=== PATIENT | female | born 1965 | race Caucasian/White ===

== ENCOUNTER 2016-03-22 21:44 | Inpatient (IN) | payer OTHER ==
[2016-03-22 22:27] VITALS: BMI 21.9
--- NOTE | 2016-03-22 22:37 | HP ---
COWS - Scale Resting Pulse: 2= [place] 101-120 Sweatin=Flushed/Facial Moisture Restless Observation: 5= Unable to Sit Still Pupil Size: 1= Pupils >than Normal Bone or Joint Aches: 4=Acute Joint/Muscle Pain Runny Nose/ Eye Tearin= Nasal Congestion GI Upset > 30mins: 2= Nausea/Diarrhea Tremor Observation: 4= Gross Tremor/Twitching Yawning Observation: 0= None Anxiety or Irritability: 4=Extreme Anxiety Goose Flesh Skin: 0=Smooth Skin COWS Score: 25 CIWA Score - CIWA Score Nausea/Vomitin Muscle Tremors: 4-Moderate,w/Arms Extend Anxiety: 4-Mod. Anxious/Guarded Agitation: 4-Moderately Restless Paroxysmal Sweats: 3 Orientation: 1-Uncertain about Date Tacttile Disturbances: 2-Mild Itch/Numbness/Burn Auditory Disturbances: 2-Mild Harshness/Frighten Visual Disturbances: 0-None Headache: 4-Moderately Severe CIWA-Ar Total Score: 26 Admission ROS S - HPI Chief Complaint: WITHDRAWAL SX'S Allergies/Adverse Reactions: Allergies Allergy/AdvReac Type Severity Reaction Status Date / Time No Known Allergies Allergy Verified 03/22/16 22:36 History of Present Illness: 51 Y.O. FEMALE WITH OPIOID/BENZO DEPENDENCE ADMITTED FOR DETOX TXMENT. KNOWN TO [facility]. DENIES ANY SIGNIFICANT CLEAN TIME. LAST DETOX 12/2015 Exam Limitations: No Limitations - Ebola screening Have you traveled outside of the country in the last 21 days: No (N) Have you had contact with anyone from an Ebola affected area: No Have you been sick,other than usual withdrawal symptoms: No Do you have a fever: No - Review of Systems Constitutional: Chills, Loss of Appetite, Malaise, Night Sweats EENT: reports: Nose Congestion Respiratory: reports: No Symptoms reported Cardiac: reports: No Symptoms Reported GI: reports: Nausea, Poor Appetite : reports: No Symptoms Reported Musculoskeletal: reports: Back Pain, Joint Pain, Neck Pain Integumentary: reports: No Symptoms Reported Neuro: reports: No Symptoms reported Endocrine: reports: No Symptoms Reported Hematology: reports: No Symptoms Reported Psychiatric: reports: Anxious, Depressed Other Systems: Reviewed and Negative Patient History - Patient Medical History Hx Anemia: No Hx Asthma: No Hx Chronic Obstructive Pulmonary Disease (COPD): No Hx Cancer: No Hx Cardiac Disorders: Yes (MURMUR) Hx Congestive Heart Failure: No Hx Hypertension: Yes (H/O D/C NORVASC) Hx Hypercholesterolemia: No Hx Pacemaker: No HX Cerebrovascular Accident: No Hx Seizures: No Hx Dementia: No Hx Diabetes: No Hx Gastrointestinal Disorders: No Hx Liver Disease: No Hx Genitourinary Disorders: No Hx Sexually Transmitted Disorders: No Hx Renal Disease (ESRD): No Hx Thyroid Disease: No Hx Human Immunodeficiency Virus (HIV): No Hx Hepatitis C: No Hx Depression: Yes (NO MEDS) Hx Suicide Attempt: No Hx Bipolar Disorder: No Hx Schizophrenia: No Other Medical History: FIBROMYALGIA - Patient Surgical History Past Surgical History: Yes Hx Neurologic Surgery: Yes (SPINAL SX X2 cervical sx) Hx Cataract Extraction: No Hx Cardiac Surgery: No Hx Lung Surgery: No Hx Breast Surgery: No Hx Breast Biopsy: No Hx Abdominal Surgery: No Hx Appendectomy: No Hx Cholecystectomy: No Hx Genitourinary Surgery: No Hx Section: No Hx Orthopedic Surgery: Yes (L wrist sx L rotator cuff sx) Hx Hysterectomy: No Anesthesia Reaction: No - PPD History Previous Implant?: Yes Documented Results: Positive w/o proof Implanted On Prior [facility] Admission?: No Date: 01/08/16 Results: NEGATIVE CXR PPD to be Administered?: No - Reproductive History Last Menstrual Period: 09/19/15 Patient : No - Smoking Cessation Smoking history: Current every day smoker Have you smoked in the past 12 months: Yes Aproximately how many cigarettes per day: 20 Cigars Per Day: 0 Hx Chewing Tobacco Use: No Initiated information on smoking cessation: Yes 'Breaking Loose' booklet given: 03/22/16 - Substance & Tx. History Hx Alcohol Use: Yes Hx Substance Use: Yes Substance Use Type: Alcohol, Prescribed (PERCOCET/XANAX), Tranquilizers Hx Substance Use Treatment: Yes ([facility]) - Substances Abused PERCOCETS Route: Oral Frequency: Daily Amount used: 7-10/325MG Age of first use: 50 Date of Last Use: 03/21/16 XANAX Route: Oral Frequency: Daily Amount used: 2MG Age of first use: 41 Date of Last Use: 03/22/16 Family Disease History - Family Disease History Family Disease History: Heart Disease: Father ( heart attack), CA: Mother (breast ) Admission Physical Exam [facility] - Vital Signs Vital Signs: Vital Signs - 24 hr 03/22/16 22:23 Temperature 98.6 F Pulse Rate 105 H Respiratory 20 Rate Blood Pressure 160/109 - Physical General Appearance: Yes: Appropriately Dressed, Mild Distress, Tremorous, Sweating, Anxious HEENTM: Yes: EOMI, Hearing grossly Normal, Normocephalic, Normal Voice, TREVON, Pharynx Normal Respiratory: Yes: Chest Non-Tender, Lungs Clear, Normal Breath Sounds, No Respiratory Distress, No Accessory Muscle Use Neck: Yes: No masses,lesions,Nodules, Supple, Trachea in good position Breast: Yes: Breast Exam Deferred Cardiology: Yes: Regular Rhythm, S1, S2, Tachycardia Abdominal: Yes: Normal Bowel Sounds, Non Tender, Flat, Soft Genitourinary: Yes: Within Normal Limits Back: Yes: Normal Inspection Musculoskeletal: Yes: full range of Motion, Gait Steady Extremities: Yes: Normal Capillary Refill, Normal Range of Motion, Non-Tender, Tremors Neurological: Yes: ice guard tester II-XII NML intact, Fully Oriented, Alert, Motor Strength 5/5 Integumentary: Yes: Normal Color, Dry, Warm Lymphatic: Yes: Within Normal Limits - Diagnostic (1) Opioid dependence with withdrawal Current Visit: No Status: Acute (2) Nicotine dependence Current Visit: No Status: Chronic Qualifiers: Nicotine product type: cigarettes Substance use status: uncomplicated Qualified Code(s): F17.210 - Nicotine dependence, cigarettes, uncomplicated (3) Sedative, hypnotic or anxiolytic dependence with withdrawal, uncomplicated Current Visit: Yes Status: Acute (4) Fibromyalgia Current Visit: Yes Status: Acute (5) History of positive PPD Current Visit: Yes Status: Acute Cleared for Admission [facility] - Detox or Rehab [facility] Level of Care: Medically Managed Detox Regimen/Protocol: Methadone/Valium [facility] Breath Alcohol Content Breath Alcohol Content: 0.015 Urine Pregancy Test - Result Urine Test Results: Negative- NO Line Present Urine Drug Screen - Results Drug Screen Negative: No Urine Drug Screen Results: BZO-Benzodiazepines, OXY-Oxycodone
[2016-03-22] MEDS ORDERED: MAGNESIUM CITRATE 300 ML BOTTLE PO PRN (22:59)
[2016-03-22] MEDS ORDERED: MAG HYDROX/AL HYDROX/SIMETH 30 ML UNIT-DOSE CUP PO PRN (22:59)
[2016-03-22] MEDS ORDERED: diphenhydrAMINE HCL 50 MG CAPSULE PO PRN (22:59)
[2016-03-22] MEDS ORDERED: guaiFENesin/D-METHORPHAN HB 10 ML UNIT-DOSE CUPS PO PRN (22:59)
[2016-03-22] MEDS ORDERED: P-EPHED 60MG/TRIPROLIDI 2.5MG TABLET PO PRN (22:59)
[2016-03-22] MEDS ORDERED: METHADONE HCL 10 MG TABLET (FOR DETOX USE ONLY) PO ONE ×2 (22:59→23:00)
[2016-03-22] MEDS ORDERED: diazePAM 5 MG TABLET PO ONE (22:59)
[2016-03-22] MEDS ORDERED: IBUPROFEN 400 MG TABLET (FP) PO PRN (22:59)
[2016-03-22] MEDS ORDERED: NICOTINE POLACRILEX 2 MG GUM BUC PRN (22:59)
[2016-03-22] MEDS ORDERED: MAGNESIUM HYDROX 2400MG/30ML ORAL SUSPENSION 30 ML CUP PO PRN (22:59)
[2016-03-22] MEDS ORDERED: MENTHOL/PHENOL 1 EACH UD MM PRN (22:59)
[2016-03-22] MEDS ORDERED: LOPERAMIDE HCL 2 MG CAPSULE PO PRN (22:59)
[2016-03-22] MEDS: diazePAM 5 MG TABLET PO SCH (23:42)
[2016-03-23] MEDS: ACETAMINOPHEN 325 MG TABLET (FP) PO PRN (00:38)
[2016-03-23 01:14] LABS: URINE APPEARANCE CLEAR; URINE BILIRUBIN NEGATIVE (NEGATIVE); URINE COLOR STRAW; URINE GLUCOSE (UA) NEGATIVE (NEGATIVE); URINE KETONE NEGATIVE (NEGATIVE); URINE LEUK ESTERASE NEGATIVE (NEGATIVE); URINE NITRITE NEGATIVE (NEGATIVE); URINE PROTEIN NEGATIVE (NEGATIVE); URINE UROBILINOGEN NEGATIVE E.U./dl (0.2-1.0)
[2016-03-23 01:22] LABS: URINE BLOOD 1+ (NEGATIVE)
[2016-03-23 01:25] LABS: URINE BACTERIA MODERATE /hpf (NONE SEEN); URINE HYALINE CAST 2 /lpf; URINE MUCUS RARE; URINE RBC <1 /hpf (0-3); URINE WBC 3 /hpf (3-5)
[2016-03-23] MEDS: hydrOXYzine PAMOATE 50 MG CAPSULE (FP) PO PRN (02:02)
[2016-03-23] MEDS: diazePAM 5 MG TABLET PO SCH ×3 (06:05→22:40)
--- NOTE | 2016-03-23 09:29 | EKG ---
Test Reason : Blood Pressure : / mmHG Vent. Rate : 088 BPM Atrial Rate : 088 BPM P-R Int : 156 ms QRS Dur : 070 ms QT Int : 376 ms P-R-T Axes : 076 067 036 degrees QTc Int : 454 ms NORMAL SINUS RHYTHM POSSIBLE LEFT ATRIAL ENLARGEMENT NO PREVIOUS ECGS AVAILABLE Confirmed by JAC CERRATO MD ([id number]) on 03/23/2016 9:29:18 AM Referred By: Confirmed By:JAC CERRATO MD
--- NOTE | 2016-03-23 09:46 | PN ---
[facility] CIWA - CIWA Score Nausea/Vomitin Muscle Tremors: 4-Moderate,w/Arms Extend Anxiety: 4-Mod. Anxious/Guarded Agitation: 4-Moderately Restless Paroxysmal Sweats: 3 Orientation: 0-Oriented Tacttile Disturbances: 1-Very Mild Itch/Numbness Auditory Disturbances: 0-None Visual Disturbances: 0-None Headache: 4-Moderately Severe CIWA-Ar Total Score: 23 [facility] COWS - Scale Resting Pulse: 1= [place] 81-100 Sweatin= Chills/Flushing Restless Observation: 1= Difficult to Sit Still Pupil Size: 1= Pupils >than Normal Bone or Joint Aches: 2= Severe Diffuse Aches Runny Nose/ Eye Tearin= Runny Nose/Eyes GI Upset > 30mins: 2= Nausea/Diarrhea Tremor Observation of Outstretched Hands: 2= Slight Tremor Visible Yawning Observation: 2= >3x During Session Anxiety or Irritability: 2=Irritable/Anxious Goose Flesh Skin: 3=Piloerection COWS Score: 19 S Progress Note (SOAP) Subjective: nausea, sweats, interrupted sleep, anxiety, tremors, body aches Objective: 03/23/16 09:44 Vital Signs - 24 hr 03/22/16 03/22/16 03/23/16 22:23 23:58 06:00 Temperature 98.6 F 97.0 F L 97.5 F L Pulse Rate 105 H 91 H 65 Respiratory 20 20 16 Rate Blood Pressure 160/109 156/103 130/75 Laboratory Tests 03/23/16 00:45 Urine Color Straw Urine Appearance Clear Urine pH 7.0 D Ur Specific [place] 1.004 Urine Protein Negative Urine Glucose (UA) Negative Urine Ketones Negative Urine Blood 1+ H Urine Nitrite Negative Urine Bilirubin Negative Urine Urobilinogen Negative Ur Leukocyte Esterase Negative Urine RBC <1 Urine WBC 3 Ur Epithelial Cells Few Urine Bacteria Moderate Hyaline Casts 2 Urine Mucus Rare labs still pending Assessment: 03/23/16 09:45 withdrawal sx Plan: cont detox, repeat urinalysis, urine c and s
[2016-03-23] MEDS ORDERED: METHADONE HCL 10 MG TABLET (FOR DETOX USE ONLY) PO SCH (10:00)
[2016-03-23 10:33] LABS: MCH 30.8 pg (25.7-33.7); MCHC 33.7 g/dl (32.0-36.0); MEAN CELL VOLUME 91.5 fl (80-96); MEAN PLT VOLUME 8.8 fl (7.5-11.1); PLATELET COUNT 290 K/MM3 (134-434); WHITE BLOOD COUNT 9.6 K/mm3 (4.0-10.0)
[2016-03-23] MEDS: cloNIDine HCL 0.1 MG TABLET PO SCH ×2 (10:39→22:41)
[2016-03-23] MEDS: NICOTINE 21 MG/24 HOURS TOPICAL PATCH TD SCH (10:40)
[2016-03-23] MEDS: PRENATAL VITAMINS W/ FOLIC ACID TABLET (FP) PO SCH (10:40)
[2016-03-23] MEDS: NAPROXEN 500 MG TABLET (FP) PO SCH ×2 (10:40→22:41)
[2016-03-23] MEDS: diazePAM 5 MG TABLET PO PRN ×2 (10:41→18:04)
[2016-03-23 12:01] LABS: BILIRUBIN,TOTAL 0.8 mg/dL (0.2-1.0); CALCIUM 9.2 mg/dL (8.5-10.1); TOT PROT 7.2 g/dl (6.4-8.2)
[2016-03-23] MEDS: CYCLOBENZAPRINE HCL 10 MG TABLET (FP) PO SCH ×2 (13:36→22:41)
--- NOTE | 2016-03-23 15:53 | CONSULT ---
[facility] Psychiatric Consult - Data Date of interview: 03/23/16 Admission source: [facility] Identifying data: Readmission to [facility] for this 51 y/o female seeking detox treatment on for opiate,alcohol and benzodiazepine (xanax ) dependence.Patient is single,a mother of two,domiciled,unemployed (disabled) and supported on [facility] benefits. Substance Abuse History: - Smoking Cessation. Smoking history: Current every day smoker. Have you smoked in the past 12 months: Yes. Aproximately how many cigarettes per day: 20. Cigars Per Day: 0. Hx Chewing Tobacco Use: No. Initiated information on smoking cessation: Yes. 'Breaking Loose' booklet given : 03/22/16. - Substance & Tx. History. Hx Alcohol Use: Yes. Hx Substance Use : Yes. Substance Use Type: Alcohol, Prescribed (PERCOCET/XANAX), Tranquilizers. Hx Substance Use Treatment: Yes ([facility]). - Substances Abused. * * PERCOCETS. Route: Oral. Frequency: Daily. Amount used: 7-10/325MG. Age of first use: 50. Date of Last Use: 03/21/16. XANAX. Route: Oral. Frequency : Daily. Amount used: 2MG. Age of first use: 41. Date of Last Use: 03/22/16. Discussed ith [facility] patient in this interview.Patient confirmed this pattern of substance use. Medical History: Significant for a history of herniated discs,spinal fusion ( cervical spine),fibromyalgia,arthritis,heart murmur,hypertension and orthosurgery (rotator cuff in left wrist). Psychiatric History: Patient denies. Physical/Sexual Abuse/Trauma History: Patient denies. Additional Comment: Urine Drug Screen Results: BZO-Benzodiazepines, OXY- Oxycodone.Noted. Mental Status Exam - Mental Status Exam Alert and Oriented to: Time, Place, Person Cognitive Function: Good Patient Appearance: Well Groomed Mood: Withdrawn, Hopeful Affect: Normal Range Patient Behavior: Fatigued, Appropriate, Cooperative Speech Pattern: Clear, Appropriate Voice Loudness: Normal Thought Process: Goal Oriented Thought Disorder: Not Present Hallucinations: Denies Suicidal Ideation: Denies Homicidal Ideation: Denies Insight/Judgement: Poor Sleep: Poorly, Difficulty falling asleep Appetite: Good Muscle strength/Tone: Normal Gait/Station: Normal Psychiatric Findings - Problem List ([place] 1, 2,3) (1) Alcohol dependence with uncomplicated withdrawal Current Visit: Yes Status: Acute (2) Sedative, hypnotic or anxiolytic dependence with withdrawal, uncomplicated Current Visit: Yes Status: Acute (3) Opioid dependence with withdrawal Current Visit: Yes Status: Acute (4) Nicotine dependence Current Visit: Yes Status: Acute Qualifiers: Nicotine product type: cigarettes Substance use status: uncomplicated Qualified Code(s): F17.210 - Nicotine dependence, cigarettes, uncomplicated (5) Drug-induced mood disorder Current Visit: Yes Status: Acute (6) Fibromyalgia Current Visit: Yes Status: Chronic (7) History of positive PPD Current Visit: Yes Status: Chronic (8) Benign and innocent cardiac murmurs Current Visit: Yes Status: Chronic (9) Weight loss Current Visit: Yes Status: Suspected (10) Insomnia Current Visit: Yes Status: Acute - Initial Treatment Plan Initial Treatment Plan: Pschoeducation.Detoxification.Zolpidem 10 mg po hs.Patient is made aware of the risk of parasomnias.She agrees to take Ambien as prescribed.Observation.
[2016-03-23 16:34] LABS: URINE APPEARANCE SLCLOUDY; URINE BILIRUBIN NEGATIVE (NEGATIVE); URINE BLOOD NEGATIVE (NEGATIVE); URINE COLOR DKYELLOW; URINE GLUCOSE (UA) NEGATIVE (NEGATIVE); URINE KETONE TRACE (NEGATIVE); URINE NITRITE POSITIVE (NEGATIVE); URINE PROTEIN NEGATIVE (NEGATIVE); URINE UROBILINOGEN NEGATIVE E.U./dl (0.2-1.0)
[2016-03-23 16:37] LABS: URINE LEUK ESTERASE TRACE (NEGATIVE)
[2016-03-23 16:54] LABS: URINE BACTERIA MANY /hpf (NONE SEEN); URINE MUCUS MANY; URINE RBC <1 /hpf (0-3); URINE WBC 17 /hpf (3-5)
[2016-03-23] MEDS: MICONAZOLE NITRATE 100 MG SUPP SUPP.VAG PV SCH (22:39)
[2016-03-23] MEDS: THIAMINE HCL 100 MG TABLET (FP) PO SCH (22:40)
[2016-03-23] MEDS: ZOLPIDEM TARTRATE 5 MG TABLET PO PRN (22:40)
[2016-03-24] MEDS: diazePAM 5 MG TABLET PO PRN ×2 (06:06→14:52)
[2016-03-24] MEDS: CYCLOBENZAPRINE HCL 10 MG TABLET (FP) PO SCH ×3 (06:06→22:21)
[2016-03-24] MEDS: cloNIDine HCL 0.1 MG TABLET PO SCH ×2 (10:25→22:21)
[2016-03-24] MEDS: METHADONE HCL 5 MG TABLET (FOR DETOX USE ONLY) PO SCH (10:25)
[2016-03-24] MEDS: NAPROXEN 500 MG TABLET (FP) PO SCH ×2 (10:26→22:21)
[2016-03-24] MEDS: diazePAM 5 MG TABLET PO SCH ×2 (10:26→22:21)
[2016-03-24] MEDS: NICOTINE 21 MG/24 HOURS TOPICAL PATCH TD SCH (10:26)
[2016-03-24] MEDS: PRENATAL VITAMINS W/ FOLIC ACID TABLET (FP) PO SCH (10:26)
--- NOTE | 2016-03-24 10:37 | PN ---
[facility] CIWA - CIWA Score Nausea/Vomitin-No Nausea/No Vomiting Muscle Tremors: 3 Anxiety: 4-Mod. Anxious/Guarded Agitation: 4-Moderately Restless Paroxysmal Sweats: 3 Orientation: 0-Oriented Tacttile Disturbances: 0-None Auditory Disturbances: 0-None Visual Disturbances: 0-None Headache: 0-None Present CIWA-Ar Total Score: 14 S COWS - Scale Resting Pulse: 0= [place] 80 or Below Sweatin=Flushed/Facial Moisture Restless Observation: 1= Difficult to Sit Still Pupil Size: 0= Normal to Room Light Bone or Joint Aches: 2= Severe Diffuse Aches Runny Nose/ Eye Tearin= Runny Nose/Eyes GI Upset > 30mins: 2= Nausea/Diarrhea Tremor Observation of Outstretched Hands: 2= Slight Tremor Visible Yawning Observation: 1= 1-2x During Session Anxiety or Irritability: 2=Irritable/Anxious Goose Flesh Skin: 0=Smooth Skin COWS Score: 14 [facility] Progress Note (SOAP) Subjective: ANXIETY,TREMORS,SWEATING,INTERRUPTED SLEEP,RESTLESS,BODY ACHES Objective: 03/24/16 10:35 Vital Signs - 8 hr 03/24/16 03/24/16 03:30 06:00 Temperature 97.0 F L Pulse Rate 71 Respiratory 18 16 Rate Blood Pressure 113/71 Laboratory Tests 03/23/16 03/23/16 03/23/16 00:45 07:40 07:40 WBC 9.6 RBC 4.79 Hgb 14.8 Hct 43.8 MCV 91.5 MCHC 33.7 RDW 13.0 Plt Count 290 MPV 8.8 Sodium 142 Potassium 3.9 Chloride 100 Carbon Dioxide 31 Anion Gap 11 BUN 23 H Creatinine 1.0 Creat Clearance w eGFR 58.00 Random Glucose 77 D Calcium 9.2 Total Bilirubin 0.8 D AST 21 D ALT 30 D Alkaline Phosphatase 74 Total Protein 7.2 Albumin 4.0 Urine Color Straw Urine Appearance Clear Urine pH 7.0 D Ur Specific [place] 1.004 Urine Protein Negative Urine Glucose (UA) Negative Urine Ketones Negative Urine Blood 1+ H Urine Nitrite Negative Urine Bilirubin Negative Urine Urobilinogen Negative Ur Leukocyte Esterase Negative Urine RBC <1 Urine WBC 3 Ur Epithelial Cells Few Urine Bacteria Moderate Hyaline Casts 2 Urine Mucus Rare RPR Titer 03/23/16 03/23/16 07:40 14:30 WBC RBC Hgb Hct MCV MCHC RDW Plt Count MPV Sodium Potassium Chloride Carbon Dioxide Anion Gap BUN Creatinine Creat Clearance w eGFR Random Glucose Calcium Total Bilirubin AST ALT Alkaline Phosphatase Total Protein Albumin Urine Color Dkyellow Urine Appearance Slcloudy Urine pH 5.0 D Ur Specific [place] 1.026 Urine Protein Negative Urine Glucose (UA) Negative Urine Ketones Trace H Urine Blood Negative Urine Nitrite Positive Urine Bilirubin Negative Urine Urobilinogen Negative Ur Leukocyte Esterase Trace H Urine RBC <1 Urine WBC 17 Ur Epithelial Cells Few Urine Bacteria Many Hyaline Casts Urine Mucus Many RPR Titer Nonreactive LABS NOTED,U/A HAS + NITRITE,BACTERIA & LEUK ESTERASE Assessment: 03/24/16 10:40 WITHDRAWAL SX. Plan: CONTINUE DETOX R/O UTI START LEVAQUIN
[2016-03-24] MEDS: LEVOFLOXACIN 500 MG TABLET (FP) PO SCH (10:44)
[2016-03-24] MEDS: ACETAMINOPHEN 325 MG TABLET (FP) PO PRN (11:44)
[2016-03-24] MEDS: hydrOXYzine PAMOATE 50 MG CAPSULE (FP) PO PRN (13:06)
[2016-03-24] MEDS: THIAMINE HCL 100 MG TABLET (FP) PO SCH (22:20)
[2016-03-24] MEDS: ZOLPIDEM TARTRATE 5 MG TABLET PO PRN (22:21)
[2016-03-24] MEDS: MICONAZOLE NITRATE 100 MG SUPP SUPP.VAG PV SCH (22:27)
[2016-03-25] MEDS: diazePAM 5 MG TABLET PO PRN ×3 (04:56→18:34)
[2016-03-25] MEDS: CYCLOBENZAPRINE HCL 10 MG TABLET (FP) PO SCH ×4 (04:56→22:33)
[2016-03-25] MEDS: METHADONE HCL 5 MG TABLET (FOR DETOX USE ONLY) PO SCH (10:24)
[2016-03-25] MEDS: LEVOFLOXACIN 500 MG TABLET (FP) PO SCH (10:24)
[2016-03-25] MEDS: diazePAM 5 MG TABLET PO SCH ×2 (10:24→22:33)
[2016-03-25] MEDS: PRENATAL VITAMINS W/ FOLIC ACID TABLET (FP) PO SCH (10:24)
[2016-03-25] MEDS: cloNIDine HCL 0.1 MG TABLET PO SCH ×2 (10:24→22:33)
[2016-03-25] MEDS: NAPROXEN 500 MG TABLET (FP) PO SCH ×2 (10:24→22:33)
[2016-03-25] MEDS: NICOTINE 21 MG/24 HOURS TOPICAL PATCH TD SCH (10:25)
--- NOTE | 2016-03-25 11:37 | PN ---
[facility] Progress Note (SOAP) Subjective: nausea, sweats, interrupted sleep, anxiety, tremors Objective: 03/25/16 11:36 Vital Signs - 8 hr 03/25/16 03/25/16 05:08 10:27 Temperature 97.0 F L 96.6 F L Pulse Rate 68 74 Respiratory 16 18 Rate Blood Pressure 133/71 114/68 Laboratory Tests 03/23/16 03/23/16 03/23/16 00:45 07:40 07:40 WBC 9.6 RBC 4.79 Hgb 14.8 Hct 43.8 MCV 91.5 MCHC 33.7 RDW 13.0 Plt Count 290 MPV 8.8 Sodium 142 Potassium 3.9 Chloride 100 Carbon Dioxide 31 Anion Gap 11 BUN 23 H Creatinine 1.0 Creat Clearance w eGFR 58.00 Random Glucose 77 D Calcium 9.2 Total Bilirubin 0.8 D AST 21 D ALT 30 D Alkaline Phosphatase 74 Total Protein 7.2 Albumin 4.0 Urine Color Straw Urine Appearance Clear Urine pH 7.0 D Ur Specific [place] 1.004 Urine Protein Negative Urine Glucose (UA) Negative Urine Ketones Negative Urine Blood 1+ H Urine Nitrite Negative Urine Bilirubin Negative Urine Urobilinogen Negative Ur Leukocyte Esterase Negative Urine RBC <1 Urine WBC 3 Ur Epithelial Cells Few Urine Bacteria Moderate Hyaline Casts 2 Urine Mucus Rare RPR Titer 03/23/16 03/23/16 07:40 14:30 WBC RBC Hgb Hct MCV MCHC RDW Plt Count MPV Sodium Potassium Chloride Carbon Dioxide Anion Gap BUN Creatinine Creat Clearance w eGFR Random Glucose Calcium Total Bilirubin AST ALT Alkaline Phosphatase Total Protein Albumin Urine Color Dkyellow Urine Appearance Slcloudy Urine pH 5.0 D Ur Specific [place] 1.026 Urine Protein Negative Urine Glucose (UA) Negative Urine Ketones Trace H Urine Blood Negative Urine Nitrite Positive Urine Bilirubin Negative Urine Urobilinogen Negative Ur Leukocyte Esterase Trace H Urine RBC <1 Urine WBC 17 Ur Epithelial Cells Few Urine Bacteria Many Hyaline Casts Urine Mucus Many RPR Titer Nonreactive Assessment: 03/25/16 11:37 withdrawal sx Plan: cont detox, fluids, encoruage ambulation
[2016-03-25] MEDS: ACETAMINOPHEN 325 MG TABLET (FP) PO PRN (14:25)
[2016-03-25] MEDS: THIAMINE HCL 100 MG TABLET (FP) PO SCH (22:33)
[2016-03-25] MEDS: ZOLPIDEM TARTRATE 5 MG TABLET PO PRN (22:33)
[2016-03-25] MEDS: MICONAZOLE NITRATE 100 MG SUPP SUPP.VAG PV SCH (22:53)
[2016-03-26] MEDS: hydrOXYzine PAMOATE 50 MG CAPSULE (FP) PO PRN ×3 (00:34→18:40)
[2016-03-26] MEDS: ACETAMINOPHEN 325 MG TABLET (FP) PO PRN (00:35)
[2016-03-26] MEDS: CYCLOBENZAPRINE HCL 10 MG TABLET (FP) PO SCH ×3 (06:04→22:30)
[2016-03-26] MEDS ORDERED: diazePAM 5 MG TABLET PO SCH (10:00)
[2016-03-26] MEDS ORDERED: METHADONE HCL 10 MG TABLET (FOR DETOX USE ONLY) PO SCH (10:00)
[2016-03-26] MEDS: NAPROXEN 500 MG TABLET (FP) PO SCH ×2 (10:36→22:30)
[2016-03-26] MEDS: PRENATAL VITAMINS W/ FOLIC ACID TABLET (FP) PO SCH (10:36)
[2016-03-26] MEDS: NICOTINE 21 MG/24 HOURS TOPICAL PATCH TD SCH (10:37)
[2016-03-26] MEDS: LEVOFLOXACIN 500 MG TABLET (FP) PO SCH (10:37)
[2016-03-26] MEDS: cloNIDine HCL 0.1 MG TABLET PO SCH ×2 (10:37→22:30)
[2016-03-26] MEDS ORDERED: NITROFURANTOIN MACROCRYSTAL 50 MG CAPSULE (FP) PO SCH (11:15)
--- NOTE | 2016-03-26 11:16 | PN ---
[facility] Progress Note (SOAP) Subjective: uti sweats anxious interrupted sleep Objective: 03/26/16 11:15 Vital Signs Temperature 96.6 F L 03/26/16 09:51 Pulse Rate 71 03/26/16 09:51 Respiratory Rate 18 03/26/16 09:51 Blood Pressure 149/59 03/26/16 09:51 O2 Sat by Pulse Oximetry (%) Laboratory Tests 03/23/16 03/23/16 03/23/16 00:45 07:40 07:40 WBC 9.6 RBC 4.79 Hgb 14.8 Hct 43.8 MCV 91.5 MCHC 33.7 RDW 13.0 Plt Count 290 MPV 8.8 Sodium 142 Potassium 3.9 Chloride 100 Carbon Dioxide 31 Anion Gap 11 BUN 23 H Creatinine 1.0 Creat Clearance w eGFR 58.00 Random Glucose 77 D Calcium 9.2 Total Bilirubin 0.8 D AST 21 D ALT 30 D Alkaline Phosphatase 74 Total Protein 7.2 Albumin 4.0 Urine Color Straw Urine Appearance Clear Urine pH 7.0 D Ur Specific [place] 1.004 Urine Protein Negative Urine Glucose (UA) Negative Urine Ketones Negative Urine Blood 1+ H Urine Nitrite Negative Urine Bilirubin Negative Urine Urobilinogen Negative Ur Leukocyte Esterase Negative Urine RBC <1 Urine WBC 3 Ur Epithelial Cells Few Urine Bacteria Moderate Hyaline Casts 2 Urine Mucus Rare RPR Titer 03/23/16 03/23/16 07:40 14:30 WBC RBC Hgb Hct MCV MCHC RDW Plt Count MPV Sodium Potassium Chloride Carbon Dioxide Anion Gap BUN Creatinine Creat Clearance w eGFR Random Glucose Calcium Total Bilirubin AST ALT Alkaline Phosphatase Total Protein Albumin Urine Color Dkyellow Urine Appearance Slcloudy Urine pH 5.0 D Ur Specific [place] 1.026 Urine Protein Negative Urine Glucose (UA) Negative Urine Ketones Trace H Urine Blood Negative Urine Nitrite Positive Urine Bilirubin Negative Urine Urobilinogen Negative Ur Leukocyte Esterase Trace H Urine RBC <1 Urine WBC 17 Ur Epithelial Cells Few Urine Bacteria Many Hyaline Casts Urine Mucus Many RPR Titer Nonreactive 03/23/16 14:30 Urine Culture - Final Urine - Urine Clean Catch Escherichia Coli awake/alert ambulating no acute distress micro for u/a shows echoli; Assessment: 03/26/16 11:17 withdrawal sx Plan: continue detox increase fluids nitrofurantoin 100mg x one
[2016-03-26] MEDS: THIAMINE HCL 100 MG TABLET (FP) PO SCH (22:30)
[2016-03-26] MEDS: ZOLPIDEM TARTRATE 5 MG TABLET PO PRN (22:30)
[2016-03-26] MEDS: MICONAZOLE NITRATE 100 MG SUPP SUPP.VAG PV SCH (22:31)
[2016-03-27] MEDS: ACETAMINOPHEN 325 MG TABLET (FP) PO PRN (00:45)
[2016-03-27] MEDS: hydrOXYzine PAMOATE 50 MG CAPSULE (FP) PO PRN ×2 (00:46→10:17)
[2016-03-27] MEDS: CYCLOBENZAPRINE HCL 10 MG TABLET (FP) PO SCH (05:16)
[2016-03-27] MEDS ORDERED: METHADONE HCL 5 MG TABLET (FOR DETOX USE ONLY) PO SCH (06:00)
--- NOTE | 2016-03-27 08:52 | DS ---
[facility] Detox Discharge Summary Admission Date: 03/22/16 Discharge Date: 03/27/16 - History Present History: Alcohol Dependence, Cocaine Dependence, Opioid Dependence, Sedative Dependence - Physical Exam Results Vital Signs: Vital Signs Temperature 97.2 F L 03/27/16 06:37 Pulse Rate 74 03/27/16 06:37 Respiratory Rate 18 03/27/16 06:37 Blood Pressure 152/83 03/27/16 06:37 O2 Sat by Pulse Oximetry (%) - Treatment Hospital Course: Detox Protocol Followed, Detoxed Safely, Responded well, Discharged Condition Good, Rehab Referral Accepted - Medication Discharge Medications: Ambulatory Orders Zolpidem Tartrate [Ambien] 10 mg PO HS #14 tablet MDD 10 01/03/16 - Diagnosis (1) Alcohol dependence with uncomplicated withdrawal Current Visit: Yes Status: Chronic (2) Drug-induced mood disorder Current Visit: Yes Status: Chronic (3) Insomnia Current Visit: Yes Status: Chronic (4) Nicotine dependence Current Visit: Yes Status: Chronic Qualifiers: Nicotine product type: cigarettes Substance use status: uncomplicated Qualified Code(s): F17.210 - Nicotine dependence, cigarettes, uncomplicated (5) Opioid dependence with withdrawal Current Visit: Yes Status: Chronic (6) Sedative, hypnotic or anxiolytic dependence with withdrawal, uncomplicated Current Visit: Yes Status: Chronic (7) Benign and innocent cardiac murmurs Current Visit: Yes Status: Chronic (8) Fibromyalgia Current Visit: Yes Status: Chronic (9) History of positive PPD Current Visit: Yes Status: Chronic (10) Weight loss Current Visit: Yes Status: Suspected (11) Cocaine dependence, uncomplicated Current Visit: Yes Status: Chronic (12) Anxiety Current Visit: No Status: Suspected - AMA Did Patient Leave Against Medical Advice: No
[2016-03-27 10:15] VITALS: BP 114/71; PULSE 92; TEMP 97.7
[2016-03-27] MEDS: NICOTINE 21 MG/24 HOURS TOPICAL PATCH TD SCH (10:16)
[2016-03-27] MEDS: PRENATAL VITAMINS W/ FOLIC ACID TABLET (FP) PO SCH (10:16)
[2016-03-27] MEDS: NAPROXEN 500 MG TABLET (FP) PO SCH (10:16)
[2016-03-27] MEDS: cloNIDine HCL 0.1 MG TABLET PO SCH (10:16)
== END 2016-03-27 10:19 | disposition home or self-care (01) | DRG 897 ==
LOC: YASAS 21:44 → Y6N 22:49
PROVIDERS: ADMIT Internal Medicine; ATTEND Internal Medicine
PROC: HZ2ZZZZ Detoxification Services for Substance Abuse Treatment (ICD-10-PCS; principal; 2016-03-27)
DX: F11.23 Opioid dependence with withdrawal (principal); F14.20 Cocaine dependence, uncomplicated; F13.230 Sedative, hypnotic or anxiolytic dependence with withdrawal, uncomplicated; F10.230 Alcohol dependence with withdrawal, uncomplicated; F19.24 Other psychoactive substance dependence with psychoactive substance-induced mood disorder; F41.9 Anxiety disorder, unspecified; G47.00 Insomnia, unspecified; R01.0 Benign and innocent cardiac murmurs; M79.7 Fibromyalgia; R63.4 Abnormal weight loss; Z68.22 Body mass index [BMI] 22.0-22.9, adult; Z87.898 Personal history of other specified conditions
CPT/HCPCS: 36415; 80053; 81003; 81015; 85027; 86593; 87086; 87186; 93005; 93010